=== PATIENT | male | born 1950 | race Caucasian/White ===

== ENCOUNTER 2020-08-14 09:43 | Emergency (ER) | payer OTHER ==
[~2020-08-14] VITALS: Ht 177.8 cm; Wt 105.6 kg
--- NOTE | 2020-08-14 10:26 | PHYS DOC ---
General Adult EDM: Chief Complaint: LACERATION/AVULSION HPI: HPI: 70-year-old male presents with head injury. The patient was walking into [facility] to get breakfast this morning when he got bit dizzy and fell onto the concrete sidewalk. He has a laceration of the right forehead and some abrasions on his face. He did not lose consciousness. He feels okay except for the facial pain at this time. He denies a headache or altered sensation. Patient is diabetic and takes Lantus at night. He gets mild intermittent dizziness in the morning sometimes if he does not eat breakfast right away. He had not eaten anything after waking up this morning. On arrival blood sugar 78. He tells me this is fairly low for him as he is usually around 120. He denies any other injuries or complaints. He is not on any blood thinners or antiplatelets. He supposed be on a baby aspirin daily, but does not take it every day. Review of Systems: Review of Systems: Constitutional: Denies fever or chills Eyes: Denies change in visual acuity HENT: Denies nasal congestion or sore throat. Abrasions and laceration of the face Respiratory: Denies cough or shortness of breath Cardiovascular: Denies chest pain or edema GI: Denies abdominal pain, nausea, vomiting, bloody stools or diarrhea : Denies dysuria Musculoskeletal: Denies back pain or joint pain Integument: Denies rash Neurologic: Denies headache, focal weakness or sensory changes Endocrine: Denies polyuria or polydipsia Lymphatic: Denies swollen glands Psychiatric: Denies depression or anxiety Heart Score: Risk Factors: Risk Factors: DM, Current or recent (<one month) smoker, HTN, HLP, family history of CAD, obesity. Risk Scores: Score 0 - 3: 2.5% MACE over next 6 weeks - Discharge Home Score 4 - 6: 20.3% MACE over next 6 weeks - Admit for Clinical Observation Score 7 - 10: 72.7% MACE over next 6 weeks - Early Invasive Strategies Physical Exam: PE: Constitutional: Well developed, well nourished, no acute distress, non-toxic appearance. [] HENT: Normocephalic, abrasions of the head, bilateral external ears normal, oropharynx moist, no oral exudates, nose normal. [] Eyes: PERRLA, EOMI, conjunctiva normal, no discharge. [] Neck: Normal range of motion, no tenderness, supple, no stridor. [] Cardiovascular: Heart rate regular rhythm, no murmur [] Lungs & Thorax: Bilateral breath sounds clear to auscultation [] Abdomen: Bowel sounds normal, soft, no tenderness, no masses, no pulsatile masses. [] Skin: Abrasions of the face and head. 3cm laceration right forehead [] Back: No tenderness, no CVA tenderness. [] Extremities: No tenderness, no cyanosis, no clubbing, ROM intact, no edema. [] Neurologic: Alert and oriented X 3, normal motor function, normal sensory function, no focal deficits noted. [] Psychologic: Affect normal, judgement normal, mood normal. [] Current Patient Data: Labs: Laboratory Tests Test 08/14/20 10:05 Glucose (Fingerstick) 78 mg/dL (70-99) EKG: EKG: [] Radiology/Procedures: Radiology/Procedures: [] Course & Med Decision Making: Course & Med Decision Making Pertinent Labs and Imaging studies reviewed. (See chart for details) I repaired the patient's facial laceration with skin adhesive. This was his request versus sutures. See note below for more details. I asked the patient if he was worried about anything else and wanted a further work-up out of caution and he declined. He is very confident this was related to his blood sugar and is feeling fine otherwise. He has had no other signs or symptoms of illness lately. Patient is stable for discharge at this time. [] Dragon Disclaimer: Dragmonica Disclaimer: This electronic medical record was generated, in whole or in part, using a voice recognition dictation system. Laceration Repair Lac Repair Indication: [] 3 cm linear laceration of the right forehead Procedure: The patient gave me verbal permission for tissue adhesive repair of his forehead laceration. I thoroughly irrigated the wound with normal saline under pressure. There was no foreign bodies found. No anesthesia was used. I applied 2 layers of Dermabond skin adhesive to the wound. There was good skin approximation. Bleeding was controlled. No dressing was applied. Total repaired wound length: 3 cm Other Items: None The patient tolerated the procedure well. Complications: None Departure Departure: Impression: Primary Impression: Laceration of forehead without complication Qualified Codes: S01.81XA - Laceration without foreign body of other part of head, initial encounter Additional Impression: Abrasion, face w/o infection Disposition: 01 DC HOME SELF CARE/HOMELESS Condition: STABLE Referrals: PCP,NO (PCP) Patient Instructions: Abrasion, [id number], Tissue Adhesive Wound Care, [id number] LEIF MALAVE DO Aug 14, 2020 10:26
[2020-08-14 10:40] VITALS: BP 149/66
== END 2020-08-14 10:40 | disposition home or self-care (01) ==
LOC: ER 09:43
DX: S01.81XA Laceration without foreign body of other part of head, initial encounter (principal); W18.39XA Other fall on same level, initial encounter; Y93.01 Activity, walking, marching and hiking; Y92.480 Sidewalk as the place of occurrence of the external cause; Y99.8 Other external cause status
CPT/HCPCS: 12013; 82947; 99284